=== PATIENT | female | born 1990 | race Hispanic/Latino ===

== ENCOUNTER 2018-11-02 10:37 | Outpatient (CLI) | payer OTHER, SELFPAY ==
[2018-11-02] VITALS (8 sets, daily range): BP systolic 104–120; BP diastolic 44–83; PULSE 77–82; RESP 16; TEMP 36.3; O2SAT 99–100
--- NOTE | 2018-11-02 10:39 | DI.RAD.S_ITS ---
PROCEDURE: PAIN L INTERLAMINAR/CAUDAL INJ INDICATIONS: INTERVERTEBRAL DISC DISPLACEMENT FINDINGS: Fluoroscopic spot filming was performed to verify placement of spinal needles at the dorsal interlaminar notch area of the L4-5 level level(s), as labeled on the films. Appropriate location(s) of the needle tip(s) was confirmed by injection of iodinated contrast. IMPRESSION: Successful needle tip localization dorsally at the L4-5 interlaminar notch for steroid epidural injection. Dictated by: Adam Aviles M.D. on 11/02/2018 at 12:43 Approved by: Adam Aviles M.D. on 11/02/2018 at 12:45
--- NOTE | 2018-11-02 11:02 | PC.NURSE ---
plan , delayed treatment, due to anxiety. per dr ugarte.
--- NOTE | 2018-11-02 11:24 | PC.NURSE ---
resting, warm blanket provided, friend at bs for reassurance.
[2018-11-02] MEDS: fentaNYL 100 MCG/2 ML INJ 50 MCG IV (12:04)
[2018-11-02] MEDS: MIDAZOLAM 5 MG/5 ML VIAL IV (12:04)
[2018-11-02] MEDS: BUPIVACAINE 0.25% (PF) VIAL 2 ML INJ (12:12)
[2018-11-02] MEDS: DEXAMETHASONE 10 MG/ML VIAL 20 MG INJ (12:13)
[2018-11-02] MEDS: methylPREDNISolone acetate 80 MG/ML VIAL INJ (12:13)
[2018-11-02] MEDS: IOPAMIDOL 15 ML VIAL 3 ML INJ (12:13)
--- NOTE | 2018-11-02 12:16 | PC.NURSE ---
ASSISTING PT OFF TABLE AND TRANSPORTING TO POST PROC AREA IN STABLE CONDITION
--- NOTE | 2018-11-02 12:21 | P.PCN_ITS ---
Procedures Date/Time Date of procedure: 11/02/18 Time of procedure: 12:20 General Procedure description: PROVIDER: Richard Cullen DO Operative Note PREOP DIAGNOSIS 1. HNP WITH RADICULAR FEATURES, 2. MULTILEVEL CENTRAL STENOSIS, POST OP DIAGNOSIS 1. HNP WITH RADICULAR FEATURES, 2. MULTILEVEL CENTRAL STENOSIS PROCEDURES 1. FLUORSCOPICALLY GUIDED CONTRAST CONTROLLED INTERLAMINAR EPIDURAL STEROID INJECTION -L4/5 PHYSICIAN: Richard Cullen DO INDICATIONs: Josefa is referred by Dr. Gonzalez for treatment of Bilateral Foraminal Stenosis R>L LE symptoms. FINDINGS Multilevel Central Spinal Stenosis with Nerve Root Compression DESCRIPTION OF PROCEDURE Fluoroscopically guided, contrast-controlled L4/5 translaminar epidural steroid injection. Following denial of allergy and review of potential side effects and complications, including, but not necessarily limited to, infection, allergic reaction, local tissue breakdown, temporary as well as permanent nerve injury, paralysis, stroke and possible , the patient indicated that the patient understood and agreed to proceed. An informed consent document was signed by the patient, witnessed by a nurse, and placed in the patient's chart. Additionally, other treatment options including modalities, medications, and physical therapy were reviewed with the patient. After review of previous anaesthesic history and IV conscious sedation the patient was deemed safe to proceed with todays procedure with IV conscious sedation as ASA class II designation. Safety time-out was performed to confirm patient ID, procedure to be performed and site of procedure. IV sedation was accomplished with a combination of 5mg Versed and 50mg of Fentanyl was administered by the RN after DO order, titrated to patient comfort during the course of the procedure while the patient remained responsive to all verbal commands In the prone position, following sterile prep and drape of the lumbar region, the L4/5 translaminar space was identified fluoroscopically. The skin was anesthetized via a 25-gauge, 1.5-inch needle with 1% lidocaine solution. At this point, a 22-gauge short bevel spinal needle was atraumatically introduced and advanced under fluoroscopic guidance into the region of the L4/5 translaminar space. Depth was confirmed on lateral view. Radiological data, including multiple fluoroscopic views of the lumbar spine, reveal a spinal needle at the L4/5 translaminar space. Lateral views then show placement of the needle in the epidural space. Subsequent views show contrast material flowing superiorly and inferiorly in the epidural space. No vascular or intrathecal uptake is observed. At this point, using loss of resistance technique with saline and air, the epidural space was entered. This was confirmed following negative aspiration with injection of approximately 1.5 cc of Isovue 200, showing excellent epidural flow without vascular or intrathecal uptake. At this point, 1 cc of 1% lidocaine solution combined with 3 cc or 20 mg of dexamethasone and 80mg Depo medrol was injected without incident. The patient tolerated the procedure well without signs or symptoms of complications prior to transfer to the recovery area continued monitoring without incident. The patient was then transferred to the recovery area where they were observed for an appropriate period of time after the injection. The patient reported a VAS score of 6 prior to the procedure and a post- procedure VAS of 0. Total Fluoroscopy Time: 11.8 seconds, 8.99 mGy Total Conscious Sedation Time: 24min POST OP INSTRUCTIONS The patient was provided a Pain Log to continue to record their response to the target-specific procedure prior to follow-up visit with their referring physician. Additionally, specific post-injection care instructions and a contact number to our office were provided if concerns arise regarding possible complications associated with the procedure are suspected. Richard Cullen, Complications: none
--- NOTE | 2018-11-02 12:31 | PC.NURSE ---
rtr from post procedure, alert and awake, able to transfer self from w/c to recliner, assuming care from filipe reid. tolerating drinking po water and eating cooking., significant others at bs.
== END 2018-11-02 12:50 ==
LOC: RAD 10:38
PROVIDERS: PCP Family Medicine; Visit Provider Physical Medicine & Rehabilitation
DX: M51.16 Intervertebral disc disorders with radiculopathy, lumbar region (principal); M48.061 Spinal stenosis, lumbar region without neurogenic claudication
CPT/HCPCS: 62323; 99152; J1040; J1100; J2250; J3010